=== PATIENT | male | born 1980 | race Asian ===

== ENCOUNTER 2021-10-04 23:08 | Emergency (ER) | payer BC ==
--- NOTE | 2021-10-04 23:30 | ED Physician Documentation ---
PD HPI ABD PAIN - Stated complaint Stated Complaint: ABD PX - Chief complaint Chief Complaint: Abd Pain - History obtained from History obtained from: Patient - History of Present Illness Timing - onset: Enter time (21:00), Today Timing - details: Abrupt onset, Waxing and waning Pain level now: 5 Quality: Pain Location: RLQ Radiation: Right flank Improved by: Other Associated symptoms: No: Nausea, Vomiting, Diarrhea, Constipation Similar symptoms before: Has not had sx before Recently seen: Not recently seen Review of Systems Constitutional: reports: Sweats. denies: Fever, Chills Cardiac: reports: Reviewed and negative Respiratory: reports: Reviewed and negative GI: reports: Abdominal Pain. denies: Nausea, Vomiting, Constipation, Diarrhea : denies: Dysuria, Frequency, Hematuria PD PAST MEDICAL HISTORY - Past Medical History Past Medical History: No - Present Medications Home Medications: Ambulatory Orders Medication Instructions Recorded Confirmed Ondansetron Odt [Zofran] 4 mg TL Q6H PRN #10 tablet 10/05/21 Tamsulosin [Flomax] 0.4 mg PO DAILY #10 cap 10/05/21 oxyCODONE [Roxicodone] 5 - 10 mg PO Q6H PRN #20 tablet 10/05/21 - Allergies Allergies/Adverse Reactions: Allergies Allergy/AdvReac Type Severity Reaction Status Date / Time No Known Drug Allergies Allergy Verified 10/04/21 23:18 - Living Situation Living Situation: reports: With spouse/s.o. Living Arrangement: reports: At home PD ED PE NORMAL - Vitals Vital signs reviewed: Yes - General General: Alert and oriented X 3, Well developed/nourished, Other (obvious painful distress) - Cardiac Cardiac: RRR, No murmur - Respiratory Respiratory: No respiratory distress, Clear bilaterally - Abdomen Abdomen: Soft, Non tender - Back Back: No CVA TTP Results - Vitals Vitals: Vital Signs - 24 hr 10/04/21 10/04/21 10/05/21 23:10 23:29 00:02 Temperature 35.9 C L Heart Rate 63 80 73 Respiratory 18 22 22 Rate Blood Pressure 151/11 H 157/101 H 107/71 O2 Saturation 100 100 95 10/05/21 10/05/21 01:30 01:59 Temperature 36.3 C L Heart Rate 70 63 Respiratory 14 14 Rate Blood Pressure 124/81 H O2 Saturation 97 95 Oxygen O2 Source Room air - Labs Labs: Laboratory Tests 10/04/21 10/04/21 10/04/21 23:28 23:28 23:50 WBC 8.6 RBC 4.95 Hgb 13.6 L Hct 41.1 L MCV 83.0 MCH 27.5 MCHC 33.1 RDW 12.9 Plt Count 316 MPV 9.9 Neut # (Auto) 3.7 Lymph # (Auto) 3.7 H [place] # (Auto) 0.7 Eos # (Auto) 0.4 Baso # (Auto) 0.0 Absolute Nucleated RBC 0.00 Nucleated RBC % 0.0 Sodium 136 Potassium 3.4 L Chloride 99 L Carbon Dioxide 23 Anion Gap 14.0 H BUN 12 Creatinine 0.9 Estimated GFR (MDRD) 92 Glucose 156 H Calcium 9.3 Total Bilirubin 0.9 AST 30 ALT 46 Alkaline Phosphatase 72 Total Protein 7.6 Albumin 4.4 Globulin 3.2 Albumin/Globulin Ratio 1.4 Lipase 34 Urine Color YELLOW Urine Clarity SL. CLOUDY Urine pH 6.5 Ur Specific Uriah 1.020 Urine Protein NEGATIVE Urine Glucose (UA) NEGATIVE Urine Ketones NEGATIVE Urine Occult Blood LARGE H Urine Nitrite NEGATIVE Urine Bilirubin NEGATIVE Urine Urobilinogen 0.2 (NORMAL) Ur Leukocyte Esterase NEGATIVE Urine RBC TNTC H Urine WBC 0-3 Ur Squamous Epith Cells NONE SEEN Amorphous Sediment Rare Urine Bacteria Rare Ur Microscopic Review INDICATED Urine Culture Comments NOT INDICATED - Rads (name of study) CT A/P Radiology: Prelim report reviewed, See rad report PD MEDICAL DECISION MAKING - ED course Complexity details: reviewed results, re-evaluated patient, considered differential, d/w patient ED course: right flank and RLQ pain since 9 PM, increasingly severe intensity and persistence. Hematuria on UA and CT reveals 3mm right UVJ stone. Incidental note of 2 nonobstructing stones in right kidney. He has excellent relief of symptoms with IV zofran, dilaudid, and toradol. Results d/w patient, follow up recommendations reviewed and return precautions discussed. He is given PO flomax. Upon sitting up prior to d/c, he had recurrence of nausea for which he is given IV phenergan. Prescriptions for oxycodone, zofran, and flomax are transmitted to his pharmacy of choice Departure - Departure Disposition: 01 Home, Self Care Clinical Impression: Renal colic Condition: Good Instructions: ED Stone Renal W Colic Prescriptions: Tamsulosin [Flomax] 0.4 mg PO DAILY #10 cap oxyCODONE [Roxicodone] 5 - 10 mg PO Q6H PRN #20 tablet PRN Reason: Pain Ondansetron Odt [Zofran] 4 mg TL Q6H PRN #10 tablet PRN Reason: Nausea / Vomiting Comments: You have a 3mm kidney stone on the right side that is causing your symptoms. Two other stones are noted in the right kidney itself, although these are not causing the symptoms (kidney stones only cause pain when they are trying to pass through the ureter (from the kidney to the bladder)). Prescriptions for oxycodone (narcotic pain medication), flomax (medication to increase chances of passing the kidney stone), and ondansetron (anti-nausea medication) have been electronically submitted to [facility] in [place] Strain your urine until you capture the kidney stone; your primary care provider might send the stone to a lab for analysis. Discharge Date/Time: 10/05/21 02:41
[2021-10-04 23:34] LABS: BASOPHILS % (AUTO) 0.5 %; EOSINOPHILS # (AUTO) 0.4 10^3/uL (0.0-0.7); EOSINOPHILS % (AUTO) 4.8 %; HCT - HEMATOCRIT 41.1 % (42.0-52.0); HGB - HEMOGLOBIN 13.6 g/dL (14.0-18.0); LYMPHOCYTES # (AUTO) 3.7 10^3/uL (1.5-3.5); LYMPHOCYTES % (AUTO) 42.6 %; MEAN CORPUSCULAR HEMOGLOBIN 27.5 pg (27.0-31.0); MEAN CORPUSCULAR HGB CONC 33.1 g/dL (32.0-36.0); MEAN PLATELET VOLUME 9.9 fL (7.4-11.4); MONOCYTES # (AUTO) 0.7 10^3/uL (0.0-1.0); MONOCYTES % (AUTO) 8.6 %; NEUTROPHILS # (AUTO) 3.7 10^3/uL (1.5-6.6); NEUTROPHILS % (AUTO) 43.4 %; PLT - PLATELET COUNT 316 10^3/uL (130-450); RED BLOOD COUNT 4.95 10^6/uL (4.70-6.10); RED CELL DISTRIBUTION WIDTH 12.9 % (12.0-15.0); WHITE BLOOD COUNT 8.6 x10^3/uL (4.8-10.8)
[2021-10-04] MEDS ORDERED: KETOROLAC 30 MG/ML VIAL IVP STA (23:37)
[2021-10-04] MEDS ORDERED: HYDROmorphone 1 MG/ML CARPUJECT IVP STA (23:37)
[2021-10-04] MEDS ORDERED: ONDANSETRON 4 MG/2 ML VIAL IVP STA (23:37)
[2021-10-04 23:58] LABS: BILIRUBIN,URINE NEGATIVE (NEGATIVE); GLUCOSE, URINE (UA) NEGATIVE (NEGATIVE); KETONES,URINE (UA) NEGATIVE (NEGATIVE); LEUKOCYTE ESTERASE, URINE NEGATIVE (NEGATIVE); NITRITE,URINE NEGATIVE (NEGATIVE); OCCULT BLOOD,URINE LARGE (NEGATIVE); PH,URINE 6.5 PH (5.0-7.5); PROTEIN,URINE NEGATIVE (NEGATIVE); UROBILINOGEN,URINE 0.2 (NORMAL) E.U./dL (NORMAL)
[2021-10-05] LABS: ALBUMIN 4.4 g/dL (3.2-5.5); ALBUMIN/GLOBULIN RATIO 1.4 (1.0-2.2); BILIRUBIN,TOTAL 0.9 mg/dL (0.2-1.0); CALCIUM 9.3 mg/dL (8.5-10.3); CREATININE 0.9 mg/dL (0.6-1.2); POTASSIUM 3.4 mmol/L (3.5-5.0); TOTAL PROTEIN 7.6 g/dL (6.7-8.2)
[2021-10-05 00:01] LABS: CLARITY,URINE SL. CLOUDY (CLEAR)
[2021-10-05 00:12] LABS: WBC,URINE 0-3 /HPF (0-3)
[2021-10-05 00:13] LABS: AMORPHOUS SEDIMENT,UR Rare /LPF; BACTERIA,URINE Rare /HPF (None Seen); RBC,URINE TNTC /HPF (0-5); SQUAMOUS EPITHELIAL CELL,UR NONE SEEN (<= Few)
[2021-10-05] MEDS ORDERED: IOVERSOL 320 50 ML VIAL ONE (00:22)
--- NOTE | 2021-10-05 00:52 | CT Report ---
PROCEDURE: Abdomen/Pelvis WO INDICATIONS: right flank pain TECHNIQUE: Noncontrast 5 mm thick sections acquired from the diaphragms to the symphysis. 5 mm coronal and sagi ttal reformats were then performed. For radiation dose reduction, the following was used: automated exposure control, adjustment of mA and/or kV according to patient size. COMPARISON: None. FINDINGS: Image quality: Excellent. ABDOMEN: Lung bases: Lung bases are clear. Heart size is normal. Solid organs: Liver and spleen are normal in size. Gallbladder is unremarkable. Pancreas is normal in contours. No adrenal nodules. Obstructing calculus at the right UVJ measuring 0.3 cm, (3/130). The right ureter is minimally promin ent. There is no significant hydronephrosis. There are additional nonobstructing kidney stones in the right kidney x2. No left-sided kidney stones. Peritoneum and bowel: No small bowel obstruction demonstrated. There is fecalization within the ileum . No significant diverticulosis. Normal appendix. No free fluid or air. Nodes and vessels: No retroperitoneal or mesenteric adenopathy by size criteria. Aorta and inferior vena cava are normal in caliber. Miscellaneous: No ventral hernias. PELVIS: Genitourinary: Bladder is mostly decompressed. Miscellaneous: No inguinal hernias or adenopathy. Bones: No suspicious bony lesions. No vertebral body compression fractures. IMPRESSION: 1. Obstructing calculus at the right UVJ measuring 0.3 cm. Minimal prominence of the right ureter. 2. Additional small nonobstructing right kidney stones x2. 3. Fecalization within the ileum. This could be due to adynamic ileus. Reviewed by: Daryl Gregg MD on 10/05/2021 12:51 AM PDT Approved by: Daryl Gregg MD on 10/05/2021 12:51 AM PDT Station ID: [id number]
[2021-10-05] MEDS ORDERED: TAMSULOSIN 0.4 MG CAPSULE PO STA (01:18)
[2021-10-05] MEDS ORDERED: oxyCODONE/ACET 5/325 Prepack 4 PO STA (01:18)
[2021-10-05 01:31] VITALS: BP 124/81
[2021-10-05] MEDS ORDERED: PROMETHAZINE INJ 25 MG in SODIUM CHLORIDE 0.9% 50 ML IV STA (01:32)
[2021-10-05] MEDS ORDERED: PROMETHAZINE 25 MG/1 ML VIAL ONE (01:44)
== END 2021-10-05 02:41 | disposition home or self-care (01) ==
LOC: ED 23:08
DX: N20.2 Calculus of kidney with calculus of ureter (principal)
CPT/HCPCS: 36415; 74176; 80053; 81001; 83690; 85025; 96374; 96375; 99284; 99285; A9270; J1170; J7040; 81003; 87086